=== PATIENT | male | born 1995 | race Caucasian/White ===

== ENCOUNTER 2017-05-28 13:21 | Emergency (ER) | payer OTHER ==
--- NOTE | 2017-05-28 13:46 | Emergency Department Report ---
Chief Complaint: Urogenital-Male Stated Complaint: BURNING WHEN URINE Time Seen by Provider: 05/28/17 13:45 - HPI History of Present Illness: pt states he woke up and noticed dysuria and discharge - ROS Review of Systems: - f/c - n/v - Exam Physical Exam: pt looks well, non toxic gcs 15, steady gait MSE screening note: Focused history and physical exam performed. Due to findings the following was ordered: labs ED Disposition for MSE Condition: Stable
[2017-05-28 13:50] VITALS: BP 137/76
[2017-05-28] MEDS ORDERED: XYLOCAINE 1% MPF 5 mL INFILTRATI ONE (16:21)
[2017-05-28] MEDS ORDERED: ZITHROMAX PO ONE (16:21)
[2017-05-28] MEDS ORDERED: ROCEPHIN IM ONE (16:21)
[2017-05-28 16:37] LABS: Bilirubin,Urine NEG (Negative); Blood,Urine NEG (Negative); Ketones,Urine NEG (Negative); Leukocyte Esterase,Urine MOD (Negative); Mucus,Urine 1+ /HPF; Nitrite,Urine NEG (Negative); Protein,Urine <15 mg/dL mg/dL (Negative); Urobilinogen,Urine < 2.0 mg/dL (<2.0)
--- NOTE | 2017-05-28 18:57 | Emergency Department Report ---
Entered by ELIANA FELDMAN, acting as scribe for GIANNA ORR PA. ED Male HPI - General Chief complaint: Urogenital-Male Stated complaint: BURNING WHEN URINE Time Seen by Provider: 05/28/17 13:45 Source: patient Mode of arrival: Ambulatory Limitations: No Limitations - History of Present Illness Initial comments: 22 year old male with no significant PMHx presents to the ED with c/o dysuria for 2 days. Patient reports he may have STD exposure, but denies partners STD exposure. Patient is currently sexually active and has protected sex. Patient denies fever, nausea, vomiting, testicular swelling. NKDA. patient has requested to be treated for STD before results. MD Complaint: penile discharge, dysuria Onset/Timin -: days(s) Location: penis Radiation: none Severity: mild Severity scale (0 -10): 4 Consistency: constant Improves with: none Worsens with: urination discharge, dysuria. denies: swelling, mass, rash, urinary retention, blood in urine, fever, nausea/vomiting, incontinence - Related Data Sexually active: Yes Allergies Allergy/AdvReac Type Severity Reaction Status Date / Time No Known Allergies Allergy Unverified 05/28/17 13:46 ED Review of Systems Comment: All other systems reviewed and negative Constitutional: denies: chills, fever Eyes: denies: eye pain, eye discharge ENT: denies: ear pain, throat pain Respiratory: denies: cough, shortness of breath, wheezing Cardiovascular: denies: chest pain, palpitations Endocrine: denies: excessive sweating Gastrointestinal: denies: abdominal pain, nausea, diarrhea Genitourinary: dysuria, discharge. denies: urgency, frequency, hematuria, testicular pain, testicular mass Musculoskeletal: denies: back pain, joint swelling, arthralgia Skin: denies: rash, lesions Neurological: denies: headache, weakness, paresthesias Psychiatric: denies: anxiety, depression Hematological/Lymphatic: denies: easy bleeding ED Past Medical Hx - Past Medical History Previous Medical History?: No - Surgical History Past Surgical History?: Yes Additional Surgical History: head injury @ age 6 and had head surgery - Social History Smoking Status: Current Every Day Smoker Substance Use Type: Alcohol, Marijuana ED Physical Exam - General Limitations: No Limitations General appearance: alert, in no apparent distress - Head Head exam: Present: atraumatic, normocephalic - Eye Eye exam: Present: normal appearance - ENT ENT exam: Present: mucous membranes moist - Neck Neck exam: Present: normal inspection - Respiratory Respiratory exam: Present: normal lung sounds bilaterally. Absent: respiratory distress, wheezes - Cardiovascular Cardiovascular Exam: Present: regular rate, normal rhythm. Absent: systolic murmur, diastolic murmur, rubs, gallop - GI/Abdominal GI/Abdominal exam: Present: soft, normal bowel sounds. Absent: distended, tenderness - Rectal Rectal exam: Present: deferred - exam: Present: normal inspection. Absent: testicular tenderness, scrotal swelling External exam: Present: normal external exam. Absent: erythema, swelling - Extremities Exam Extremities exam: Present: normal inspection - Back Exam Back exam: Present: normal inspection, full ROM. Absent: tenderness - Neurological Exam Neurological exam: Present: alert, oriented X3, normal gait - Psychiatric Psychiatric exam: Present: normal affect, normal mood - Skin Skin exam: Present: warm, dry, intact, normal color. Absent: rash ED Course Vital Signs 05/28/17 13:46 Temperature 98.5 F Pulse Rate 80 Respiratory 18 Rate Blood Pressure 137/76 O2 Sat by Pulse 97 Oximetry ED Medical Decision Making - Lab Data Labs 05/28/17 16:21 Urine Color Yellow Urine Turbidity Slightly-cloudy Urine pH 8.0 H Ur Specific [place] 1.019 Urine Protein <15 mg/dl Urine Glucose (UA) Neg Urine Ketones Neg Urine Blood Neg Urine Nitrite Neg Urine Bilirubin Neg Urine Urobilinogen < 2.0 Ur Leukocyte Esterase Mod Urine WBC (Auto) 110.0 H Urine RBC (Auto) 13.0 Urine Mucus 1+ - Medical Decision Making 22 year old male presents to ED with dysuria. patient has positive UTI. patient has been also treated with IM antibiotics and PO antibiotics during ED visit for STD. GC culture is pending. patient is stable, neurologically intact and in no acute distress. ED Disposition Clinical Impression: UTI (urinary tract infection) Qualifiers: Urinary tract infection type: site unspecified Hematuria presence: without hematuria Qualified Code(s): N39.0 - Urinary tract infection, site not specified Disposition: TO HOME OR SELFCARE Is pt being admited?: No Does the pt Need Aspirin: No Condition: Stable Instructions: Sexually Transmitted Diseases (ED), Urinary Tract Infection in Men (ED) Prescriptions: Phenazopyridine [Pyridium] 100 mg PO TID #9 tab Sulfamethoxazole/Trimethoprim [Bactrim DS TAB] 1 each PO BID #14 tablet Referrals: PRIMARY CARE, [Primary Care Provider] - 3-5 Days Forms: Work/School Release Form(ED) This documentation as recorded by the FRANCIA sebastian PEARL,accurately reflects the service I personally performed and the decisions made by ,GIANNA ORR PA.
== END 2017-05-28 17:01 | disposition home or self-care (01) ==
LOC: ED 13:21
DX: N39.0 Urinary tract infection, site not specified (principal); F17.210 Nicotine dependence, cigarettes, uncomplicated; F12.10 Cannabis abuse, uncomplicated
CPT/HCPCS: 81001; 87591; 96372; 99283; J0696